=== PATIENT | male | born 1985 | race African-American/Black ===

== ENCOUNTER 2020-12-15 08:03 | Emergency (ER) | payer MEDICAID, OTHER ==
[~2020-12-15] VITALS: Ht 188 cm; Wt 78.0 kg
[2020-12-15 08:03] VITALS: BP 108/68
[2020-12-15] MEDS ORDERED: GUAI600T44 MT (08:20)
== END 2020-12-15 08:34 | disposition home or self-care (01) ==
LOC: ER 08:03
DX: J06.9 Acute upper respiratory infection, unspecified (principal)
CPT/HCPCS: 99282

== ENCOUNTER 2020-12-15 18:58 | Emergency (ER) | payer MEDICAID ==
[~2020-12-15] VITALS: Ht 203.2 cm; Wt 78.0 kg
[~2020-12-15 18:58] MED LIST: GUAI600T44 MT
[2020-12-15] MEDS ORDERED: HYDROCODONE/ACETAMINOPHEN 5/325MG TABLET PO ONE (19:30)
[2020-12-15] MEDS ORDERED: ONDANSETRON 4MG ODT PO ONE (19:30)
[2020-12-15] MEDS ORDERED: DEXAMETHASONE 10 MG/ML VIAL IM ONE (20:45)
[2020-12-15] MEDS ORDERED: PENICILLIN G BENZATHINE 1,200,000 UNITS/2ML SYR IM ONE (20:45)
[2020-12-15 22:14] VITALS: BP 120/62
== END 2020-12-15 22:20 | disposition home or self-care (01) ==
LOC: ER 18:58
DX: J03.90 Acute tonsillitis, unspecified (principal); F12.90 Cannabis use, unspecified, uncomplicated
CPT/HCPCS: 87430; 96372; 99284; J0561; J1100; Q0162

== ENCOUNTER 2021-08-22 20:23 | Emergency (ER) | payer OTHER, MEDICAID ==
[~2021-08-22] VITALS: Ht 190.5 cm; Wt 78.0 kg
[2021-08-22] MEDS ORDERED: ACETAMINOPHEN 325MG TABLET PO ONE (21:00)
[2021-08-22] MEDS ORDERED: IBUP-2029 MT (21:05)
[2021-08-22 22:14] VITALS: BP 106/60
== END 2021-08-22 22:14 | disposition home or self-care (01) ==
LOC: ER 20:23
DX: B34.9 Viral infection, unspecified (principal); Z20.822 Contact with and (suspected) exposure to COVID-19
CPT/HCPCS: 87426; 99283

== ENCOUNTER 2022-06-12 11:17 | Emergency (ER) | payer MEDICAID, OTHER ==
[~2022-06-12] VITALS: Ht 175.3 cm; Wt 89.0 kg
[~2022-06-12 11:17] MED LIST changes: +IBUP-2029 MT
[2022-06-12 11:20] VITALS: BP 105/59
== END 2022-06-12 16:37 | disposition left against medical advice (07) ==
LOC: ER 11:17
DX: Z53.21 Procedure and treatment not carried out due to patient leaving prior to being seen by health care provider (principal)